=== PATIENT | male | born 1955 | race African-American/Black ===

== ENCOUNTER 2017-07-18 00:37 | Emergency (ER) | payer SELFPAY ==
[2017-07-18 01:22] LABS: BASOPHILS 0.2 % (0-2); EOSINOPHILS 2.9 % (0-7); HEMATOCRIT 43.6 % (42.0-54.0); IMMATURE GRANULOCYTES 0.2 % (0-5); LYMPHOCYTES 23.9 % (15-50); MCH 32.8 pg (26.0-34.0); MCHC 34.4 g/dL (31.0-37.0); MCV 95.4 fL (80.0-100.0); MEAN PLATELET VOLUME 10.2 fL (7.4-10.4); MONOCYTES 10.2 % (2-11); NEUTROPHILS 62.6 % (40-80); PLATELET COUNT 152 10x3/uL (130-400); RBC 4.57 10x6/uL (4.20-6.10); RDW 12.9 % (11.5-14.5); WBC 5.5 10x3/uL (4.8-10.8)
[2017-07-18 01:32] LABS: APTT 27.3 SECONDS (22.8-39.4); INR 1.09 (0.85-1.17); PROTIME 13.7 SECONDS (11.6-15.0)
[2017-07-18 01:46] LABS: ALBUMIN 3.5 g/dL (3.4-5.0); ANION GAP 7.6 mmol/L (8-16); BILIRUBIN - TOTAL 0.67 mg/dL (0.2-1.3); CALCIUM 8.9 mg/dL (8.5-10.1); CREATININE - SERUM 1.3 mg/dL (0.6-1.3); POTASSIUM - SERUM 3.6 mmol/L (3.5-5.1); PROTEIN - SERUM 7.8 g/dL (6.4-8.2)
[2017-07-18 01:57] LABS: CKMB 0.4 U/L (0.0-3.6); CREATINE KINASE 280 UL (21-232); TROPONIN-I < 0.017 ng/mL (0.000-0.060)
[2017-07-18 02:02] LABS: C-REACTIVE PROTEIN < 0.2 mg/dL (0.0-0.9)
[2017-07-18 02:40] LABS: ERYTHROCYTE SEDIMENTATION RATE 11 mm/hr (0-20)
== END 2017-07-18 03:12 | disposition home or self-care (01) ==
LOC: D.ER 00:37
PROVIDERS: Physician Assistant Medical
DX: G44.209 Tension-type headache, unspecified, not intractable (principal)